=== PATIENT | male | born 1985 | race Caucasian/White ===

== ENCOUNTER 2017-07-11 15:47 | Emergency (ER) | payer BC ==
[~2017-07-11] VITALS: Ht 177.8 cm; Wt 73.9 kg
[2017-07-11 15:53] VITALS: TEMP 36.3; Ht 177.8 cm; Wt 73.9 kg
[2017-07-11] MEDS ORDERED: DIPHTHERIA/TETANUS/PERTUSSIS 0.5 ML SYR/VIAL IM. ONE (16:00)
[2017-07-11] MEDS ORDERED: LIDOCAINE 1% BUFFERED INJ 5 ML VIAL INFIL ONE (16:00)
[2017-07-11 16:47] VITALS: BP 127/75; PULSE 61; O2SAT 98
--- NOTE | 2017-07-11 20:44 | EMERGENCY ROOM VISIT NOTE ---
History First contact with patient: 15:55 Chief Complaint: LACERATION/CUT (SUT/DERMABOND) Stated Complaint: DEEP CUT TO RT INNER FOREARM History of Present Illness The patient is a 31 year old male who presents to the Emergency Room with complaints of a deep right forearm laceration. The patient reports that he was cutting a cardboard box with a pocket knife when the knife slipped and stabbed his arm. The patient reports that he immediately applied direct pressure with moderate bleeding. He denies any weakness with flexion of the fingers. He denies any paresthesias or numbness, and rates his discomfort a 3 out of 10. The patient is left-hand dominant. The patient is uncertain of his last tetanus immunization. Review of Systems 6 system review was performed and was negative except for pertinent positives and negatives as indicated in history of present illness Past Medical/Surgical History Medical Problems: (1) No significant past medical history Surgical Problems: (1) No history of previous surgery Family History Unremarkable Social History Smoking Status: Never Smoker Alcohol Use: occasionally Marital Status: single Occupation Status: employed Current/Historical Medications No Active Prescriptions or Reported Meds Physical Exam Vital Signs Date Time Temp Pulse Resp B/P (MAP) Pulse Ox O2 Delivery O2 Flow Rate FiO2 07/11/17 16:47 61 18 127/75 98 07/11/17 15:53 36.3 70 17 127/82 97 Room Air Physical Exam CONSTITUTIONAL: Healthy and well nourished. Alert and oriented X 3 with positive affect. HEENT: Normocephalic, atraumatic. Pupils equal, round and reactive. MUSCULOSKELETAL: Examination of the right dorsal and distal forearm region shows a 1 cm laceration without any active bleeding or hematoma formation. The patient has full flexor strength of the fingers. Capillary refill is less than 2 seconds. INTEGUMENTARY: No rash or other significant dermatologic conditions noted. NEUROLOGIC: Right hand and fingers are sensory intact. Medical Decision & Procedures Medications Administered Medications (Trade) Dose Ordered Sig/Viktoriya Route Start Time Stop Time Status Last Admin Dose Admin Diphtheria/ Pertussis/Tetanus Vacc (Adacel Inj) 0.5 ml ONCE ONCE IM. 07/11/17 16:00 07/11/17 16:01 DC 07/11/17 16:12 0.5 ML Procedure Wound evaluation and laceration repair was performed under local anesthesia after receiving verbal consent from the patient. Using buffered 1% lidocaine without epinephrine, good local anesthesia was administered. The peripheral tissue was initially cleansed with iodine, then irrigated with normal saline. In sterile fashion, exploration of the wound ED Course Patient history and physical exam were performed. Nurse's notes were reviewed. Vital signs were reviewed and were normal. Laceration repair was performed under local anesthesia. The patient was provided additional verbal and written wound care instructions. Ice and elevation for swelling. Ibuprofen or Tylenol as needed for pain. Suture removal in 12-14 days, or seek reevaluation sooner for any signs of wound infection. The patient was happy with plan of care, voiced understanding of all discharge instructions, and denied any pain at the conclusion of my exam. Medical Decision Medication Reconcilliation Current Medication List: was personally reviewed by me Blood Pressure Screening Patient's blood pressure: Normal blood pressure Impression Primary Impression: Laceration of right wrist Departure Information Prescriptions No Active Prescriptions or Reported Meds Referrals No Doctor, Assigned (PCP) Patient Instructions My [facility] Problem Qualifiers Primary Impression: Laceration of right wrist Encounter type: initial encounter Qualified Codes: S61.511A - Laceration without foreign body of right wrist, initial encounter
== END 2017-07-11 16:49 | disposition home or self-care (01) ==
LOC: C.EDB 15:49 → C.EDD 16:49
DX: S61.511A Laceration without foreign body of right wrist, initial encounter (principal); W26.8XXA Contact with other sharp object(s), not elsewhere classified, initial encounter; Z23 Encounter for immunization